=== PATIENT | male | born 1935 | race Caucasian/White ===

== ENCOUNTER → 2017-10-22 | Outpatient (CLI) | payer OTHER ==
[~2017-10-22] MED LIST: AMOXICILLIN 50500 M1 PO; ASPIRIN325 PO; ATORVASTATIN CA10 MG PO; AZITHROMYCIN 2250 MG PO; FIBER0.52 G1 PO; FISH OIL 1,001000 M1 PO; GLUCOSAMINE CH1 EA10 PO; LEVOTHYROXINE0.05 MG PO; MULTIVITAMINS1 EAC7 PO; STOOL SOFTENER100 MG PO; VITAMIN C1000 MG PO; [UNRECOGNIZED DRUG - REMARK]
== END ==
LOC: M.RAD 11:00
DX: M76.51 Patellar tendinitis, right knee (principal)

== ENCOUNTER → 2017-11-19 | Outpatient (CLI) | payer OTHER | LOC: M.MRI 08:04 | DX: S83.241A Other tear of medial meniscus, current injury, right knee, initial encounter (principal); M22.41 Chondromalacia patellae, right knee; X58.XXXA Exposure to other specified factors, initial encounter; Y93.89 Activity, other specified; Y92.89 Other specified places as the place of occurrence of the external cause; Y99.8 Other external cause status; Z90.49 Acquired absence of other specified parts of digestive tract ==

== ENCOUNTER → 2018-06-10 | Outpatient (CLI) | payer OTHER | LOC: M.RAD 12:55 | DX: J98.4 Other disorders of lung (principal) ==

== ENCOUNTER → 2018-06-24 | Outpatient (CLI) | payer OTHER | LOC: M.CT 08:00 | DX: J98.4 Other disorders of lung (principal); I25.10 Atherosclerotic heart disease of native coronary artery without angina pectoris; N28.1 Cyst of kidney, acquired; R59.9 Enlarged lymph nodes, unspecified; M25.78 Osteophyte, vertebrae; Z90.49 Acquired absence of other specified parts of digestive tract ==

== ENCOUNTER → 2018-07-29 | Outpatient (CLI) | payer OTHER ==
[2018-07-29 08:41] LABS: CREATININE 0.9 mg/dL (0.6-1.3)
--- NOTE | 2018-07-29 14:43 | 2DMMODE ---
[place] [address] 2 D/M-MODE ECHOCARDIOGRAM Name: NO WESTON Room: [facility]#: [id number] Admission: 07/29/18 Attend Phys: Karen SCHMITZ Cadena Discharge: Date of : 33 Date of Service: 07/29/18 1443 Report #: [id number] THIS REPORT FOR: //name// APPROVED REPORT Study performed: 07/29/2018 09:56:18 EXAM: Comprehensive 2D, Doppler, and color-flow Echocardiogram Patient Location: Out-Patient Status: routine BSA: 1.99 HR: 57 bpm BP: 120/70 mmHg Rhythm: NSR Other Information Study Quality: Good Indications coronary artery calcifications 2D Dimensions IVSd: 9.43 (7-11mm) LVOT Diam: 21.27 (18-24mm) LVDd: 49.42 mm PWd: 11.24 (7-11mm) Ascending Ao: 37.95 (22-36mm) LVDs: 34.38 (25-40mm) Aortic Root: 35.35 mm Volumes Left Atrial Volume (Systole) LA ESV Index: 16.40 mL/m2 LV Strain GL Strain(%): 70.00 Aortic Valve AoV Peak Benson.: 1.09 m/s AO Peak Gr.: 4.73 mmHg LVOT Max P.07 mmHg AO Mean Gr.: 2.30 mmHg LVOT Mean P.45 mmHg LVOT Max V: 0.88 m/s AO V2 VTI: 24.60 cm LVOT Mean V: 0.55 m/s SEVEN (VTI): 3.00 cm2 LVOT V1 VTI: 20.76 [place] [address] 2 D/M-MODE ECHOCARDIOGRAM Name: NO WESTON Room: [facility]#: [id number] Admission: 07/29/18 Attend Phys: Karen SCHMITZ Cadena Discharge: Date of : 33 Date of Service: 07/29/18 1443 Report #: [id number] E/A Ratio: 0.79 MV Decel. Time: 205.12 ms MV E Max Benson.: 0.66 m/s MV PHT: 59.49 ms MVA (PHT): 3.70 cm2 TDI E/Lateral E': 7.33 E/Medial E': 8.25 Medial E' Benson.: 0.08 m/s Lateral E' Benson.: 0.09 m/s Pulmonary Valve PV Peak Benson.: 0.89 m/s PV Peak Gr.: 3.16 mmHg Tricuspid Valve RAP Estimate: 5.00 mmHg TR Peak Gr.: 17.78 mmHg RVSP: 22.00 mmHg PA Pressure: 22.00 mmHg Left Ventricle The left ventricle is normal size. There is normal LV segmental wall motion. There is normal left ventricular wall thickness. Left ventricular systolic function is normal. LVEF is 55-60%. Grade I - abnormal relaxation pattern. Right Ventricle The right ventricle is normal size. The right ventricular systolic function is normal. Atria The left atrium size is normal. The right atrium size is normal. Aortic Valve Aortic valve leaflets are mildly thickened. No aortic regurgitation is present. There is no aortic valvular stenosis. Mitral Valve The mitral valve is normal in structure. There is no mitral valve regurgitation noted. No evidence of mitral valve stenosis. Tricuspid Valve The tricuspid valve is normal in structure. Trace tricuspid regurgitation. No pulmonary hypertension[place] [address] 2 D/M-MODE ECHOCARDIOGRAM Name: NO WESTON Room: [facility]#: [id number] Admission: 07/29/18 Attend Phys: Karen SCHMITZ Cadena Discharge: Date of : 33 Date of Service: 07/29/18 1443 Report #: [id number] The pulmonary valve is normal in structure. Trace pulmonic regurgitation. Great Vessels The aortic root is normal in size. IVC is normal in size and collapses >50% with inspiration. Pericardium There is no pericardial effusion. <Conclusion> The left ventricle is normal size. There is normal left ventricular wall thickness. Left ventricular systolic function is normal. LVEF is 55-60%. Grade I - abnormal relaxation pattern. Aortic valve leaflets are mildly thickened. There is no aortic valvular stenosis. Trace tricuspid regurgitation. No pulmonary hypertension. IVC is normal in size and collapses >50% with inspiration. <ELECTRONICALLY SIGNED> By: Sunny Llanos MD, FACC 07/29/18 1443 1443 1443 Sunny Llanos MD, FACC /INF
== END ==
LOC: M.CT 07-08 13:53 → M.LAB 08:00 → M.CT 09:30 → M.CRD 10:00
PROVIDERS: Registered Nurse Diabetes Educator
DX: I35.8 Other nonrheumatic aortic valve disorders (principal); N28.1 Cyst of kidney, acquired; I25.10 Atherosclerotic heart disease of native coronary artery without angina pectoris; I25.84 Coronary atherosclerosis due to calcified coronary lesion; Z79.899 Other long term (current) drug therapy